=== PATIENT | female | born 1980 | race Two or more races ===

== ENCOUNTER 2024-03-12 14:42 | Emergency (ER) | payer OTHER ==
[~2024-03-12] VITALS: Ht 172.7 cm; Wt 68.0 kg
[~2024-03-12 14:42] MED LIST: CYCLOBENZAPRINE10 MG PO; DICLOFENAC POTA50 MG PO
[2024-03-12 15:52] VITALS: BP 115/74; O2SAT 98
== END 2024-03-12 21:56 | disposition left against medical advice (07) ==
LOC: ER 14:44
DX: Z53.21 Procedure and treatment not carried out due to patient leaving prior to being seen by health care provider (principal)